=== PATIENT | male | born 1965 | race Caucasian/White ===

== ENCOUNTER → 2017-10-15 09:41 | Outpatient (CLI) | payer OTHER ==
[~2017-10-15 09:41] MED LIST: ATROVASTATIN; DILT-CD120 MG PO; HYZAAR 100-121 UDTAB PO; LOSARTAN; PERCOCET 5/3251 TAB PO; POLY119PG PO; SURFAK240 M1 PO; [UNRECOGNIZED DRUG - SUPPLY]
== END | disposition home or self-care (01) ==
LOC: LAB 09:41
DX: R73.02 Impaired glucose tolerance (oral) (principal); I11.9 Hypertensive heart disease without heart failure; E78.2 Mixed hyperlipidemia; E03.9 Hypothyroidism, unspecified; E56.8 Deficiency of other vitamins

== ENCOUNTER 2017-12-03 14:52 | Outpatient (CLI) | payer OTHER | END 2017-12-03 15:03 | disposition home or self-care (01) | LOC: LAB 14:52 | DX: J11.82 Influenza due to unidentified influenza virus with myocarditis (principal) ==

== ENCOUNTER → 2018-02-04 07:50 | Outpatient (CLI) | payer OTHER | END | disposition home or self-care (01) | LOC: LAB 07:50 | DX: D64.89 Other specified anemias (principal); J20.9 Acute bronchitis, unspecified; B15.9 Hepatitis A without hepatic coma; A64 Unspecified sexually transmitted disease ==

== ENCOUNTER → 2018-06-10 08:13 | Outpatient (CLI) | payer OTHER | END | disposition home or self-care (01) | LOC: LAB 08:13 | DX: D64.89 Other specified anemias (principal); N39.0 Urinary tract infection, site not specified; R10.84 Generalized abdominal pain; E03.8 Other specified hypothyroidism; R80.8 Other proteinuria; E11.9 Type 2 diabetes mellitus without complications; E78.2 Mixed hyperlipidemia; I11.9 Hypertensive heart disease without heart failure ==

== ENCOUNTER 2018-09-02 14:38 | Outpatient (CLI) | payer OTHER | END 2018-09-02 15:05 | disposition home or self-care (01) | LOC: LAB 14:38 | DX: I10 Essential (primary) hypertension (principal); E03.8 Other specified hypothyroidism; E78.1 Pure hyperglyceridemia; A64 Unspecified sexually transmitted disease; N39.0 Urinary tract infection, site not specified; Z12.11 Encounter for screening for malignant neoplasm of colon; Z11.4 Encounter for screening for human immunodeficiency virus [HIV]; A63.8 Other specified predominantly sexually transmitted diseases ==

== ENCOUNTER 2018-11-02 09:11 | Outpatient (CLI) | payer OTHER | END 2018-11-02 09:51 | disposition home or self-care (01) | LOC: LAB 09:11 | DX: D64.89 Other specified anemias (principal); N39.0 Urinary tract infection, site not specified; R10.9 Unspecified abdominal pain; E03.8 Other specified hypothyroidism; E78.49 Other hyperlipidemia; R80.8 Other proteinuria; E11.9 Type 2 diabetes mellitus without complications; R73.09 Other abnormal glucose; I11.9 Hypertensive heart disease without heart failure; E78.2 Mixed hyperlipidemia; R73.02 Impaired glucose tolerance (oral); N18.9 Chronic kidney disease, unspecified ==

== ENCOUNTER 2019-04-28 07:57 | Outpatient (CLI) | payer OTHER | END 2019-04-28 08:03 | disposition home or self-care (01) | LOC: LAB 07:57 | DX: D64.89 Other specified anemias (principal); N39.0 Urinary tract infection, site not specified; R10.84 Generalized abdominal pain; E03.8 Other specified hypothyroidism; E78.49 Other hyperlipidemia; R07.89 Other chest pain; E55.9 Vitamin D deficiency, unspecified; R80.8 Other proteinuria; Z12.11 Encounter for screening for malignant neoplasm of colon; R73.09 Other abnormal glucose; I10 Essential (primary) hypertension; N40.0 Benign prostatic hyperplasia without lower urinary tract symptoms; Z12.5 Encounter for screening for malignant neoplasm of prostate; L50.8 Other urticaria; J30.89 Other allergic rhinitis ==

== ENCOUNTER 2019-10-23 11:07 | Outpatient (CLI) | payer OTHER | END 2019-10-23 11:18 | disposition home or self-care (01) | LOC: LAB 11:07 | DX: D64.89 Other specified anemias (principal); N39.0 Urinary tract infection, site not specified; R10.84 Generalized abdominal pain; E78.49 Other hyperlipidemia; E03.8 Other specified hypothyroidism; R80.8 Other proteinuria; E11.9 Type 2 diabetes mellitus without complications; R73.09 Other abnormal glucose ==

== ENCOUNTER 2020-06-13 09:23 | Outpatient (CLI) | payer OTHER | END 2020-06-13 15:00 | disposition home or self-care (01) | LOC: LAB 09:23 | PROVIDERS: ATTEND Internal Medicine Cardiovascular Disease | DX: D64.89 Other specified anemias (principal); E78.49 Other hyperlipidemia; N39.0 Urinary tract infection, site not specified; E03.8 Other specified hypothyroidism; E11.9 Type 2 diabetes mellitus without complications; R73.09 Other abnormal glucose; R10.84 Generalized abdominal pain ==

== ENCOUNTER 2020-12-25 08:00 | Outpatient (CLI) | payer OTHER | END 2020-12-25 08:12 | disposition home or self-care (01) | LOC: LAB 08:00 | PROVIDERS: ATTEND Internal Medicine Cardiovascular Disease | DX: D64.89 Other specified anemias (principal); N39.0 Urinary tract infection, site not specified; R10.9 Unspecified abdominal pain; E03.8 Other specified hypothyroidism; E78.49 Other hyperlipidemia; E55.9 Vitamin D deficiency, unspecified; R80.8 Other proteinuria; R73.09 Other abnormal glucose; N40.0 Benign prostatic hyperplasia without lower urinary tract symptoms; Z12.5 Encounter for screening for malignant neoplasm of prostate ==

== ENCOUNTER 2021-01-30 09:17 | Outpatient (CLI) | payer OTHER | END 2021-01-30 09:20 | disposition home or self-care (01) | LOC: LAB 09:17 | PROVIDERS: ATTEND Internal Medicine Cardiovascular Disease | DX: R10.9 Unspecified abdominal pain (principal) ==

== ENCOUNTER → 2021-06-04 08:36 | Outpatient (CLI) | payer OTHER | END | disposition home or self-care (01) | LOC: LAB 08:36 | PROVIDERS: ATTEND Internal Medicine Cardiovascular Disease | DX: D64.89 Other specified anemias (principal); N39.0 Urinary tract infection, site not specified; R10.84 Generalized abdominal pain; E03.8 Other specified hypothyroidism; E78.49 Other hyperlipidemia; R07.89 Other chest pain; E55.9 Vitamin D deficiency, unspecified; R80.8 Other proteinuria; R73.09 Other abnormal glucose; N40.0 Benign prostatic hyperplasia without lower urinary tract symptoms; Z12.5 Encounter for screening for malignant neoplasm of prostate ==

== ENCOUNTER → 2021-06-25 13:26 | Outpatient (CLI) | payer OTHER | END | disposition home or self-care (01) | LOC: LAB 13:26 | PROVIDERS: ATTEND Internal Medicine Cardiovascular Disease | DX: I10 Essential (primary) hypertension (principal); D64.89 Other specified anemias; E03.8 Other specified hypothyroidism; E11.9 Type 2 diabetes mellitus without complications; Z13.0 Encounter for screening for diseases of the blood and blood-forming organs and certain disorders involving the immune mechanism ==

== ENCOUNTER 2021-08-01 07:50 | Outpatient (CLI) | payer OTHER | END 2021-08-01 07:51 | disposition home or self-care (01) | LOC: LAB 07:50 | PROVIDERS: ATTEND Internal Medicine Cardiovascular Disease | DX: A64 Unspecified sexually transmitted disease (principal) ==

== ENCOUNTER 2021-11-18 09:43 | Outpatient (CLI) | payer OTHER | END 2021-11-18 09:44 | disposition home or self-care (01) | LOC: LAB 09:43 | PROVIDERS: ATTEND Internal Medicine Cardiovascular Disease | DX: D64.9 Anemia, unspecified (principal); N39.0 Urinary tract infection, site not specified; R10.9 Unspecified abdominal pain; E03.9 Hypothyroidism, unspecified; E55.9 Vitamin D deficiency, unspecified; R80.9 Proteinuria, unspecified; E11.9 Type 2 diabetes mellitus without complications; N40.0 Benign prostatic hyperplasia without lower urinary tract symptoms ==

== ENCOUNTER 2022-02-12 09:36 | Outpatient (CLI) | payer OTHER | END 2022-02-12 09:59 | disposition home or self-care (01) | LOC: LAB 09:36 | PROVIDERS: ATTEND Internal Medicine Cardiovascular Disease | DX: N41.0 Acute prostatitis (principal); A64 Unspecified sexually transmitted disease; N39.0 Urinary tract infection, site not specified ==

== ENCOUNTER → 2022-05-28 09:48 | Outpatient (CLI) | payer OTHER | END | disposition home or self-care (01) | LOC: LAB 09:48 | PROVIDERS: ATTEND Internal Medicine Cardiovascular Disease | DX: D64.9 Anemia, unspecified (principal); N39.0 Urinary tract infection, site not specified; R10.9 Unspecified abdominal pain; E03.9 Hypothyroidism, unspecified; E78.5 Hyperlipidemia, unspecified; R80.9 Proteinuria, unspecified; Z12.11 Encounter for screening for malignant neoplasm of colon; E11.9 Type 2 diabetes mellitus without complications; R73.09 Other abnormal glucose ==

== ENCOUNTER → 2022-10-02 08:02 | Outpatient (CLI) | payer OTHER | END | disposition home or self-care (01) | LOC: LAB 08:02 | PROVIDERS: ATTEND Internal Medicine Cardiovascular Disease | DX: D64.9 Anemia, unspecified (principal); N39.0 Urinary tract infection, site not specified; R10.9 Unspecified abdominal pain; E03.9 Hypothyroidism, unspecified; E78.5 Hyperlipidemia, unspecified; E55.9 Vitamin D deficiency, unspecified; R80.9 Proteinuria, unspecified; E11.9 Type 2 diabetes mellitus without complications ==

== ENCOUNTER 2023-01-18 09:39 | Outpatient (CLI) | payer OTHER | END 2023-01-18 09:53 | disposition home or self-care (01) | LOC: LAB 09:39 | PROVIDERS: ATTEND Internal Medicine Cardiovascular Disease | DX: N39.0 Urinary tract infection, site not specified (principal); E11.9 Type 2 diabetes mellitus without complications; D64.89 Other specified anemias ==

== ENCOUNTER 2023-03-15 07:14 | Outpatient (CLI) | payer OTHER | END 2023-03-15 07:16 | disposition home or self-care (01) | LOC: LAB 07:14 | PROVIDERS: ATTEND Internal Medicine Cardiovascular Disease | DX: N39.0 Urinary tract infection, site not specified (principal); I10 Essential (primary) hypertension ==

== ENCOUNTER 2023-03-16 07:56 | Outpatient (CLI) | payer OTHER | END 2023-03-16 09:05 | disposition home or self-care (01) | LOC: TOM 07:56 | PROVIDERS: ATTEND Internal Medicine Cardiovascular Disease | DX: R31.9 Hematuria, unspecified (principal) ==

== ENCOUNTER 2023-04-16 06:38 | Outpatient (CLI) | payer OTHER | END 2023-04-16 06:42 | disposition home or self-care (01) | LOC: LAB 06:38 | PROVIDERS: ATTEND Internal Medicine Cardiovascular Disease | DX: D64.9 Anemia, unspecified (principal); N39.0 Urinary tract infection, site not specified; R10.9 Unspecified abdominal pain; E03.9 Hypothyroidism, unspecified; E78.5 Hyperlipidemia, unspecified; R80.9 Proteinuria, unspecified; E11.9 Type 2 diabetes mellitus without complications; Z12.11 Encounter for screening for malignant neoplasm of colon; Z79.01 Long term (current) use of anticoagulants ==

== ENCOUNTER → 2023-10-14 08:24 | Outpatient (CLI) | payer OTHER ==
[2023-10-14 09:11] LABS: PH,URINE 6.5 (5.0-8.0); URINE APPEARANCE Clear; URINE BILIRRUBIN Negative (NEGATIVE); URINE BLOOD Negative; URINE COLOR Yellow; URINE GLUCOSE Negative (NEGATIVE); URINE LEUKOCYTE Negative; URINE NITRATE Negative; URINE PROTEIN Negative (NEGATIVE)
[2023-10-14 09:16] LABS: URINE EPITHELIAL CELLS 2.6 uL (0.0-38.8); URINE WBC 5.4 uL (0.0-23.2)
[2023-10-14 09:23] LABS: HEMATOCRIT 42.2 % (39.0-48.0); HEMOGLOBIN 14.6 g/dL (13-16.00); MEAN CELL VOLUME 89.7 fL (80.0-100.00); MEAN CORPUSCULAR HGB CONC 34.5 g/dl (32.0-36.0); PLATELET COUNT 158 K/uL (150-450); RED BLOOD COUNT 4.71 M/uL (4.00-6.00); RED CELL DISTRIBUTION WIDTH 13.2 % (11.5-14.5)
[2023-10-14 10:05] LABS: ALBUMIN 4.1 gm/dL (3.4-5.0); BILIRUBIN TOTAL 0.72 mg/dL (0.3-1.2); CALCIUM 9.2 mg/dL (8.5-10.1); CHOL HDL RATIO 2.4 (0-5.0); CREATININE SERUM 0.78 mg/dL (0.70-1.30); GFR 101.53; GLOBULINA 2.7 G/DL (2.4-3.5); POTASSIUM 4.39 mEq/L (3.5-5.1); PROSTATIC SPECIFIC ANTIGEN 1.18 NG/ML (0.010-4.00); TOTAL PROTEIN 6.8 gm/dL (6.4-8.2); TSH 1.34 uIU/mL (0.358-3.74)
[2023-10-14 10:36] LABS: ob NEGATIVE (NEGATIVE)
== END | disposition home or self-care (01) ==
LOC: LAB 08:24
PROVIDERS: ATTEND Internal Medicine Cardiovascular Disease
DX: D64.9 Anemia, unspecified (principal); N39.0 Urinary tract infection, site not specified; R10.9 Unspecified abdominal pain; E03.9 Hypothyroidism, unspecified; E78.5 Hyperlipidemia, unspecified; E55.9 Vitamin D deficiency, unspecified; R80.9 Proteinuria, unspecified; Z12.11 Encounter for screening for malignant neoplasm of colon; E11.9 Type 2 diabetes mellitus without complications; N40.0 Benign prostatic hyperplasia without lower urinary tract symptoms

== ENCOUNTER 2024-04-24 06:47 | Outpatient (CLI) | payer OTHER ==
[2024-04-24 07:24] LABS: HEMATOCRIT 41.5 % (39.0-48.0); HEMOGLOBIN 14.6 g/dL (13-16.00); MEAN CELL VOLUME 89.8 fL (80.0-100.00); MEAN CORPUSCULAR HEMOGLOBIN 31.5 pg (27.00-32.0); MEAN CORPUSCULAR HGB CONC 35.1 g/dl (32.0-36.0); PLATELET COUNT 163 K/uL (150-450); RED BLOOD COUNT 4.62 M/uL (4.00-6.00)
[2024-04-24 07:29] LABS: URINE APPEARANCE Clear; URINE BILIRRUBIN Negative (NEGATIVE); URINE BLOOD Negative; URINE COLOR Yellow; URINE GLUCOSE Negative (NEGATIVE); URINE KETONE Negative (NEGATIVE); URINE LEUKOCYTE Negative; URINE NITRATE Negative; URINE PROTEIN Negative (NEGATIVE); URINE UROBILINOGEN 0.2 E.U./dl
[2024-04-24 07:35] LABS: URINE BACTERIA 7.5 uL (0.0-1933); URINE RBC 4.8 uL (0.0-20.8); URINE WBC 2.6 uL (0.0-23.2)
[2024-04-24 08:07] LABS: URINE EPITHELIAL CELLS 0.7 uL (0.0-38.8)
[2024-04-24 08:11] LABS: ALBUMIN 3.9 gm/dL (3.4-5.0); ALKALINE PHOSPHATASE 70 U/L (50-136); ALT/SGPT 37 U/L (12-78); ANION GAP 7 (10.0-20.0); AST/SGOT 23 U/L (15-37); BILIRUBIN TOTAL 0.86 mg/dL (0.3-1.2); BLOOD UREA NITROGEN 14 mg/dL (7-18); BUN CREA RATIO 18 (7.0-25.0); C-REACTIVE PROTEIN < 0.29 MG/DL (0.00-0.29); CALCIUM 8.9 mg/dL (8.5-10.1); CARBON DIOXIDE 29 mEq/L (21-32); CHLORIDE 109 mmol/L (98-107); CHOL HDL RATIO 2.3 (0-5.0); CHOLESTEROL 174 mg/dL (0-200); CREATININE SERUM 0.79 mg/dL (0.70-1.30); GFR 100.05; GLOBULINA 2.9 G/DL (2.4-3.5); GLUCOSE FASTING 110 mg/dL (65-100); HDL 77 mg/dl (40-60); LDL 83 mg/dl (0-130); OSMOLALITY SERUM 281 MOSM/KG (275-295); POTASSIUM 4.59 mEq/L (3.5-5.1); SODIUM 140 mmol/L (136-145); TOTAL PROTEIN 6.8 gm/dL (6.4-8.2); TRIGLYCERIDES 72 mg/dL (0-150); VLDL 14 (0-39)
== END 2024-04-24 07:02 | disposition home or self-care (01) ==
LOC: LAB 06:47
PROVIDERS: ATTEND Internal Medicine Cardiovascular Disease
DX: D64.9 Anemia, unspecified (principal); N39.0 Urinary tract infection, site not specified; E10.9 Type 1 diabetes mellitus without complications; E03.9 Hypothyroidism, unspecified; E78.5 Hyperlipidemia, unspecified; R07.9 Chest pain, unspecified; R80.9 Proteinuria, unspecified; E11.9 Type 2 diabetes mellitus without complications; I50.22 Chronic systolic (congestive) heart failure; N40.0 Benign prostatic hyperplasia without lower urinary tract symptoms; Z12.5 Encounter for screening for malignant neoplasm of prostate

== ENCOUNTER 2024-07-20 06:56 | Outpatient (CLI) | payer OTHER ==
[2024-07-20 07:58] LABS: HEMATOCRIT 40.9 % (39.0-48.0); HEMOGLOBIN 14.2 g/dL (13-16.00); MEAN CELL VOLUME 89.7 fL (80.0-100.00); MEAN CORPUSCULAR HEMOGLOBIN 31.1 pg (27.00-32.0); MEAN CORPUSCULAR HGB CONC 34.7 g/dl (32.0-36.0); PLATELET COUNT 154 K/uL (150-450); RED BLOOD COUNT 4.56 M/uL (4.00-6.00); RED CELL DISTRIBUTION WIDTH 13.2 % (11.5-14.5)
[2024-07-20 08:20] LABS: URINE APPEARANCE Clear; URINE BILIRRUBIN Negative (NEGATIVE); URINE BLOOD Negative; URINE COLOR Yellow; URINE GLUCOSE Negative (NEGATIVE); URINE KETONE Negative (NEGATIVE); URINE LEUKOCYTE Negative; URINE NITRATE Negative; URINE PROTEIN Negative (NEGATIVE); URINE UROBILINOGEN 0.2 E.U./dl
[2024-07-20 08:24] LABS: URINE WBC 3.1 uL (0.0-23.2)
[2024-07-20 08:41] LABS: URINE BACTERIA 1.2 uL (0.0-1933); URINE RBC 1.7 uL (0.0-20.8)
== END 2024-07-20 06:57 | disposition home or self-care (01) ==
LOC: LAB 06:56
PROVIDERS: ATTEND Internal Medicine Cardiovascular Disease
DX: B00.0 Eczema herpeticum (principal); N39.0 Urinary tract infection, site not specified; N41.0 Acute prostatitis

== ENCOUNTER 2024-10-11 10:05 | Day surgery (SDC) | payer OTHER ==
[2024-10-05 09:36] LABS: URINE APPEARANCE Clear; URINE BILIRRUBIN Negative (NEGATIVE); URINE BLOOD Negative; URINE COLOR Yellow; URINE GLUCOSE Negative (NEGATIVE); URINE KETONE Negative (NEGATIVE); URINE LEUKOCYTE Negative; URINE NITRATE Negative; URINE PROTEIN Negative (NEGATIVE); URINE UROBILINOGEN 0.2 E.U./dl
[2024-10-05 09:39] LABS: URINE RBC 5.5 uL (0.0-20.8)
[2024-10-05 09:44] LABS: URINE BACTERIA 2.4 uL (0.0-1933); URINE EPITHELIAL CELLS 0.1 uL (0.0-38.8); URINE WBC 1.7 uL (0.0-23.2)
[2024-10-05 09:50] LABS: HEMOGLOBIN 14.3 g/dL (13-16.00); MEAN CELL VOLUME 91.5 fL (80.0-100.00); MEAN CORPUSCULAR HGB CONC 33.9 g/dl (32.0-36.0); PLATELET COUNT 170 K/uL (150-450); RED CELL DISTRIBUTION WIDTH 13.3 % (11.5-14.5)
[2024-10-05 10:06] VITALS: BP 125/67
[2024-10-05 10:21] LABS: INR 1.03; PARTIAL THROMBOPLASTIN TIME 27.1 SECONDS (22.0-34.0); PROTHROMBIN TIME 11.2 SECONDS (9.0-11.5)
[2024-10-05 10:31] LABS: BILIRUBIN TOTAL 0.8 mg/dL (0.3-1.2); CALCIUM 8.8 mg/dL (8.5-10.1); CREATININE SERUM 0.78 mg/dL (0.70-1.30); GFR 101.19; GLOBULINA 2.9 G/DL (2.4-3.5); POTASSIUM 4.6 mEq/L (3.5-5.1); PROSTATIC SPECIFIC ANTIGEN 1.54 NG/ML (0.010-4.00); TOTAL PROTEIN 6.9 gm/dL (6.4-8.2)
[~2024-10-11] VITALS: Ht 190.5 cm; Wt 95.3 kg
[~2024-10-11 10:05] MED LIST changes: +NORVASC5 MG PO; +ZOVIRAX800 MG PO
[2024-10-11] MEDS ORDERED: TAMS0.4C PO (12:07)
[2024-10-11] MEDS ORDERED: MIRALAX17 GM PO (12:07)
[2024-10-11] MEDS ORDERED: SURFAK240 M1 PO (12:07)
[2024-10-11] MEDS ORDERED: PERCOCET 5-3251 EACH PO (12:07)
[2024-10-11] MEDS ORDERED: TYLENOL325 MG PO (12:08)
[2024-10-11] MEDS ORDERED: NEURONTIN800 MG PO (12:08)
[2024-10-11] MEDS ORDERED: ENOXAPARIN SODIUM 40 MG/0.4 ML SYRINGE SUBCUTANEO ONE (12:50)
[2024-10-11] MEDS ORDERED: BUPIVACAINE HCL/MPF 0.5% 30ML VIAL ONE (12:50)
[2024-10-11] MEDS ORDERED: CEFAZOLIN SODIUM 1,000 MG VIAL ONE (12:50)
== END 2024-10-11 18:15 | disposition home or self-care (01) ==
LOC: CIR.AMB 10:05
PROVIDERS: ATTEND Surgery
DX: K40.91 Unilateral inguinal hernia, without obstruction or gangrene, recurrent (principal); K43.2 Incisional hernia without obstruction or gangrene; I10 Essential (primary) hypertension; E78.5 Hyperlipidemia, unspecified
CPT/HCPCS: 49651; 49591; 14301; C1781

== ENCOUNTER 2024-10-26 07:30 | Outpatient (CLI) | payer OTHER ==
[~2024-10-26 07:30] MED LIST changes: +MIRALAX17 GM PO; +NEURONTIN800 MG PO; +PERCOCET 5-3251 EACH PO; +TAMS0.4C PO; +TYLENOL325 MG PO
[2024-10-26 08:00] LABS: HEMATOCRIT 40.4 % (39.0-48.0); HEMOGLOBIN 14.3 g/dL (13-16.00); MEAN CELL VOLUME 88.9 fL (80.0-100.00); MEAN CORPUSCULAR HEMOGLOBIN 31.4 pg (27.00-32.0); MEAN CORPUSCULAR HGB CONC 35.3 g/dl (32.0-36.0); PLATELET COUNT 192 K/uL (150-450); RED BLOOD COUNT 4.55 M/uL (4.00-6.00); RED CELL DISTRIBUTION WIDTH 13.2 % (11.5-14.5)
[2024-10-26 08:02] LABS: PH,URINE 6.5 (5.0-8.0); URINE APPEARANCE Clear; URINE BILIRRUBIN Negative (NEGATIVE); URINE BLOOD Negative; URINE COLOR Yellow; URINE GLUCOSE Negative (NEGATIVE); URINE KETONE Negative (NEGATIVE); URINE LEUKOCYTE Trace; URINE NITRATE Negative; URINE PROTEIN Negative (NEGATIVE); URINE UROBILINOGEN 0.2 E.U./dl
[2024-10-26 08:03] LABS: URINE BACTERIA 15.8 uL (0.0-1933); URINE EPITHELIAL CELLS 1.8 uL (0.0-38.8); URINE WBC 5.5 uL (0.0-23.2)
[2024-10-26 09:26] LABS: ALBUMIN 3.9 gm/dL (3.4-5.0); BILIRUBIN TOTAL 0.67 mg/dL (0.3-1.2); CHOL HDL RATIO 2.5 (0-5.0); CREATININE SERUM 0.77 mg/dL (0.70-1.30); GFR 102.71; GLOBULINA 2.9 G/DL (2.4-3.5); POTASSIUM 4.4 mEq/L (3.5-5.1); PROSTATIC SPECIFIC ANTIGEN 1.59 NG/ML (0.010-4.00); TOTAL PROTEIN 6.8 gm/dL (6.4-8.2); TSH 1.49 uIU/mL (0.358-3.74)
== END 2024-10-26 07:44 | disposition home or self-care (01) ==
LOC: LAB 07:30
PROVIDERS: ATTEND Internal Medicine Cardiovascular Disease
DX: D64.9 Anemia, unspecified (principal); N39.0 Urinary tract infection, site not specified; R10.9 Unspecified abdominal pain; E03.9 Hypothyroidism, unspecified; E78.5 Hyperlipidemia, unspecified; R07.9 Chest pain, unspecified; E55.9 Vitamin D deficiency, unspecified; R80.9 Proteinuria, unspecified; E11.9 Type 2 diabetes mellitus without complications; Z12.5 Encounter for screening for malignant neoplasm of prostate; N40.0 Benign prostatic hyperplasia without lower urinary tract symptoms

== ENCOUNTER 2025-04-24 07:10 | Outpatient (CLI) | payer OTHER ==
[2025-04-24 07:52] LABS: BASO % 0.6 % (0.1-1.2); EOS # 0.25 (0.04-0.54); EOS % 5.1 % (0.7-7.0); LYMPH # 1.81 (1.18-3.74); LYMPH % 37.1 % (19.3-53.1); MEAN PLATELET VOLUME 10.10 fl (9.4-12.4); MONO # 0.47 (0.24-0.82); MONO % 9.6 % (4.7-12.5); NEUT # 2.31 (1.56-6.13); NEUT % 47.4 % (34.0-71.1); RED CELL DISTRIBUTION WIDTH 12.0 % (11.6-14.4)
[2025-04-24 08:19] LABS: URINE APPEARANCE Clear; URINE BILIRRUBIN Negative (NEGATIVE); URINE BLOOD Trace; URINE COLOR Yellow; URINE GLUCOSE Negative (NEGATIVE); URINE KETONE Trace (NEGATIVE); URINE LEUKOCYTE Negative; URINE NITRATE Negative; URINE PROTEIN Negative (NEGATIVE); URINE UROBILINOGEN 0.2 E.U./dl
[2025-04-24 08:23] LABS: URINE EPITHELIAL CELLS 1.5 uL (0.0-38.8); URINE RBC 4.1 uL (0.0-20.8); URINE WBC 4.4 uL (0.0-23.2)
[2025-04-24 08:28] LABS: URINE BACTERIA 2.3 uL (0.0-1933); URINE CAST 0.00 uL (0.0-1.40)
[2025-04-24 08:52] LABS: ALT/SGPT 45.0 U/L (12-78); AST/SGOT 28.0 U/L (15-37); BILIRUBIN TOTAL 0.63 mg/dL (0.3-1.2); BUN CREA RATIO 21.0 (7.0-25.0); CHOL HDL RATIO 2.8 (0-5.0); CREATININE SERUM 0.72 mg/dL (0.70-1.30); GFR 110.98; GLOBULINA 2.7 G/DL (2.4-3.5); GLUCOSE FASTING 103.0 mg/dL (65-100); HDL 60.0 mg/dl (40-60); LDL 82.0 mg/dl (0-130); OSMOLALITY SERUM 280.0 MOSM/KG (275-295); PROSTATIC SPECIFIC ANTIGEN 1.22 NG/ML (0.010-4.00); VLDL 25.0 (0-39)
[2025-04-24 10:18] LABS: TSH 1.91 uIU/mL (0.358-3.74)
== END 2025-04-24 07:26 | disposition home or self-care (01) ==
LOC: LAB 07:10
PROVIDERS: ATTEND Internal Medicine Cardiovascular Disease
DX: D64.9 Anemia, unspecified (principal); N39.0 Urinary tract infection, site not specified; R10.9 Unspecified abdominal pain; E03.9 Hypothyroidism, unspecified; E78.5 Hyperlipidemia, unspecified; E55.9 Vitamin D deficiency, unspecified; R80.9 Proteinuria, unspecified; E11.9 Type 2 diabetes mellitus without complications; N40.0 Benign prostatic hyperplasia without lower urinary tract symptoms; Z12.5 Encounter for screening for malignant neoplasm of prostate